=== PATIENT | male | born 1990 | race Caucasian/White ===

== ENCOUNTER 2016-10-15 06:13 | Day surgery (SDC) | payer MEDICAID ==
[2016-10-15] MEDS ORDERED: LACTATED RINGERS 1,000 ML IV ONE ×2 (06:32→08:45)
[2016-10-15] MEDS ORDERED: NEOSTIGMINE 1 MG/1 ML 10 ML MDV IVP ONE (08:10)
[2016-10-15] MEDS ORDERED: fentaNYL 100 MCG/2 ML VIAL IVP ONE (08:10)
[2016-10-15] MEDS ORDERED: ONDANSETRON 4 MG/2 ML VIAL IVP ONE (08:10)
[2016-10-15] MEDS ORDERED: KETOROLAC 30 MG/ML VIAL IVP ONE (08:10)
[2016-10-15] MEDS ORDERED: MIDAZOLAM 2 MG/2 ML VIAL IVP ONE (08:10)
[2016-10-15] MEDS ORDERED: PROPOFOL 200 MG/20 ML VIAL IVP ONE (08:10)
[2016-10-15] MEDS ORDERED: LIDOCAINE-MPF 2% 5 ML VIAL IM ONE (08:10)
[2016-10-15] MEDS ORDERED: SUCCINYLCHOLINE 200 MG/10 ML VIAL IVP ONE (08:10)
[2016-10-15] MEDS ORDERED: GLYCOPYRROLATE 1 MG/5 ML VIAL IVP ONE (08:10)
[2016-10-15] MEDS ORDERED: diphenhydrAMINE INJ 50 MG/ML VIAL IVP ONE (08:10)
[2016-10-15] MEDS ORDERED: ROCURONIUM 50 MG/5 ML VIAL IVP ONE (08:10)
[2016-10-15] MEDS ORDERED: BUPIVACAINE 0.5%-EPI 1:200000 PF 30 ML VIAL SUBQ ONE (08:16)
[2016-10-15] MEDS ORDERED: LIDOCAINE JELLY 2% 5 ML TUBE TOP ONE (08:27)
[2016-10-15] MEDS ORDERED: oxyCOD/ACETAMIN 5 MG/325 MG TABLET PO ONE (10:41)
== END 2016-10-15 06:14 | disposition home or self-care (01) ==
PROC: 0DBQ0ZZ Excision of Anus, Open Approach (ICD-10-PCS; principal; 2016-10-15 07:30)
DX: K60.1 Chronic anal fissure (principal); K59.00 Constipation, unspecified; I10 Essential (primary) hypertension; F17.210 Nicotine dependence, cigarettes, uncomplicated; R05 Cough
CPT/HCPCS: 46940; A9270; J3490; J7120